=== PATIENT | male | born 1945 | race Asian ===

== ENCOUNTER 2018-07-14 10:06 | Emergency (ER) | payer MEDICARE, MEDICAID ==
[~2018-07-14] VITALS: Ht 175.3 cm; Wt 74.4 kg
[~2018-07-14 10:06] MED LIST: ACET-73 GT; ACET-73 PO; ACET325C3 GT; ASPI81TA31 GT; BISA10SU12 RC; BLOO-140 IN; DEXT15SY3 GT; DONE10TA44 GT; FAMO-132 GT; GABA-532 GT; GLIM1TAB GT; LISI10TA5 GT; MAGN400O6 GT; MEMA5TAB GT; METF-442 GT; MULT237L4 GT; NA P133E RC; PRO HEAL GT; SIMV20TA2 GT
--- NOTE | 2018-07-14 10:12 | NUR ---
Patient BIB BLS transport from SNF for GT replacement. Patient had 24 FR Gtube COAT MAKER which was pulled out at the SNF. ER MD replaced with new GT, confirmed with auscultation. Pending KUB confirmation then cleared to d/c to SNF.
[2018-07-14] MEDS ORDERED: DIATR MEGLU/DIATRIZOATE SODIUM 30 ML SOLUTION PO ONE (10:15)
[2018-07-14] MEDS ORDERED: DIATR MEGLU/DIATRIZOATE SODIUM 30 ML SOLUTION ONE (10:17)
--- NOTE | 2018-07-14 10:18 | NUR ---
Xray at bedside for KUB
--- NOTE | 2018-07-14 10:26 | NUR ---
BLS transport at bedside for patient pick up man //return to SNF.
--- NOTE | 2018-07-14 10:28 | NUR ---
Patient discharged to home in stable conditon. Written and verbal after care instructions given. Patient verbalizes understanding of instructions. Transporter back to SNF via BLS transport. All belongings with patient.
[2018-07-14 10:29] VITALS: BP 144/81
== END 2018-07-14 10:30 | disposition home or self-care (01) ==
LOC: ER 10:06
DX: Z43.1 Encounter for attention to gastrostomy (principal); I10 Essential (primary) hypertension; E78.5 Hyperlipidemia, unspecified; J44.9 Chronic obstructive pulmonary disease, unspecified; K21.9 Gastro-esophageal reflux disease without esophagitis; E11.9 Type 2 diabetes mellitus without complications; Z79.899 Other long term (current) drug therapy; Z86.73 Personal history of transient ischemic attack (TIA), and cerebral infarction without residual deficits
CPT/HCPCS: 74018; A4663; Q9963